=== PATIENT | male | born 1985 | race Caucasian/White ===

== ENCOUNTER 2022-06-29 13:15 | Emergency (ER) | payer MEDICAID ==
[~2022-06-29] VITALS: Ht 180.3 cm; Wt 81.8 kg
[2022-06-29 13:36] VITALS: BP 150/82
[2022-06-29] MEDS ORDERED: LIDOcaine 1% w/EPI 1:100,000 30ml vial (MDV) IJ ONE (15:34)
[2022-06-29] MEDS ORDERED: bacitracin 15gm ointment TP ONE (15:35)
--- NOTE | 2022-06-29 16:33 | NUR ---
rt thumb lac irr with 150ml nacl rt lat knee lac irr with 150ml nacl
[2022-06-29] MEDS ORDERED: SULF1TAB49 PO (17:14)
[2022-06-29] MEDS ORDERED: sulfamethoxazole/trimethoprim DS (800/160mg) tablet PO ONE (17:15)
[2022-06-29] MEDS ORDERED: ondansetron 4mg rapidly disintigrating tab PO ONE (17:15)
== END 2022-06-29 17:43 | disposition home or self-care (01) ==
LOC: ER 13:16
DX: S61.011A Laceration without foreign body of right thumb without damage to nail, initial encounter (principal); S81.011A Laceration without foreign body, right knee, initial encounter; Z79.2 Long term (current) use of antibiotics; X58.XXXA Exposure to other specified factors, initial encounter; Y93.89 Activity, other specified; Y92.89 Other specified places as the place of occurrence of the external cause; Y99.8 Other external cause status
CPT/HCPCS: 12002; 99284; A6449

== ENCOUNTER 2022-07-12 12:03 | Day surgery (SDC) | payer MEDICAID ==
[2022-07-07 13:41] LABS: BASOPHILS # (AUTO) 0.1 X10'3 (0-0.2); BASOPHILS % (AUTO) 1.3 % (0-1); EOSINOPHILS # (AUTO) 0.1 X10'3 (0-0.9); EOSINOPHILS % (AUTO) 1.9 % (0-6); LYMPHOCYTES # (AUTO) 2.5 X10'3 (1.1-4.8); LYMPHOCYTES % (AUTO) 39.4 % (21-51); MEAN CORPUSCULAR HEMOGLOBIN 29.4 PG (27.0-31.0); MEAN CORPUSCULAR HGB CONC 32.9 g/dL (33.0-36.5); MEAN CORPUSCULAR VOLUME 89.4 FL (78-98); MEAN PLATELET VOLUME 8.2 FL (7.4-10.4); MONOCYTES # (AUTO) 0.6 X10'3 (0-0.9); NEUTROPHILS % (AUTO) 48.4 % (42-75); PRE OP HEMATOCRIT 45.6 % (42.0-52.0); PRE OP PLATELET COUNT 162 X10'3 (140-440); RED CELL DISTRIBUTION WIDTH 13.5 % (11.5-14.5)
[2022-07-07 13:52] LABS: ALBUMIN 3.8 G/DL (3.4-5.0); ALBUMIN/GLOBULIN RATIO 1.2 (1.1-1.5); ALKALINE PHOSPHATASE 86 IU/L (46-116); BLOOD UREA NITROGEN 18 MG/DL (7-18); BUN/CREATININE RATIO 18.2 (5.4-32.0); CALCIUM 8.8 MG/DL (8.5-10.1); CHLORIDE 104 MMOL/L (99-107); CREATININE 0.99 MG/DL (0.60-1.10); PRE OP ALT 27 U/L (30-65); PRE OP ANION GAP 4 (8-16); PRE OP AST 16 U/L (10-37); PRE OP BILIRUB, TOTAL 0.3 MG/DL (0.0-1.0); PRE OP GLUCOSE 113 MG/DL (70-104); PRE OP POTASSIUM 4.5 MMOL/L (3.4-5.1); PRE OP SODIUM 139 MMOL/L (135-145); TOTAL CARBON DIOXIDE 31.3 MMOL/L (24-32); TOTAL PROTEIN 6.9 G/DL (6.4-8.2); eGFR 85 ML/MIN
[~2022-07-12] VITALS: Ht 180.3 cm; Wt 82.7 kg
[~2022-07-12 12:03] MED LIST: NO HOME MEDS; ceFAZolin inj. 2,000 MG in dextrose 5%-water 100 ML IV ONE; famotidine 20mg tablet PO ONE; ringers solution, lacted 1,000 ML IV SCH
[2022-07-12 12:15] VITALS: BP 120/70
--- NOTE | 2022-07-12 13:27 | NUR ---
patient prepped for surgery, 2 iv's started without difficulty, one suture remains in right thumb. patients sensation in right thumb is intact, pink warm and dry right hand, pt is unable to bend his thumb backwards, limited mobility.
[2022-07-12] MEDS ORDERED: BUPIVAcaine/PF 2.5mg/ml (0.25%) 10ml vial ONE (13:48)
[2022-07-12] MEDS ORDERED: LIDOcaine 0.5% (5mg/ml) 50ml vial ONE (15:38)
[2022-07-12] MEDS ORDERED: fentaNYL/PF 50MCG/1 ML 2ML syringe ONE (15:50)
[2022-07-12] MEDS ORDERED: MIDAZolam 1 MG/ML 5ML VIAL ONE (16:01)
[2022-07-12] MEDS ORDERED: ondansetron/PF 4mg/2ml inj ONE (16:20)
[2022-07-12] MEDS ORDERED: glycopyrrolate 0.2mg/ml inj ONE (16:20)
[2022-07-12 16:25] VITALS: BP 125/83
--- NOTE | 2022-07-12 16:25 | NUR ---
Received from OR via BED, accompanied by Anesthesiologist and report given by Anesthesiologist. PATIENT WAKING UP, NO S/S OF PAIN, V/S WNL, SCD ON, 20G TO LUE, RIGHT WRIST THUMB DRESSING CDI . ICE AND ELEVATED RUE.
[2022-07-12 16:35] VITALS: BP 119/83
[2022-07-12 16:45] VITALS: BP 121/79
[2022-07-12 16:55] VITALS: BP 114/75
[2022-07-12 17:05] VITALS: BP 123/78
--- NOTE | 2022-07-12 17:05 | NUR ---
PATIENT A&OX4, DENIES PAIN, V/S WNL, SCD OFF, 20G TO LUE D/C, RIGHT WRIST THUMB DRESSING CDI . ICE AND ELEVATED RUE. NEUROVASCULAR CHECKS INTACT. . I HAVE REVIEWED D/C INSTRUCTIONS WITH PATIENT and they have verbalized understanding patient d/c home with all belongings and family gave transport home.
== END 2022-07-12 17:05 | disposition home or self-care (01) ==
LOC: PAS 12:03
PROVIDERS: ATTEND Orthopaedic Surgery Hand Surgery
DX: S66.222A Laceration of extensor muscle, fascia and tendon of left thumb at wrist and hand level, initial encounter (principal); F17.210 Nicotine dependence, cigarettes, uncomplicated; W25.XXXA Contact with sharp glass, initial encounter; Y93.89 Activity, other specified; Y92.89 Other specified places as the place of occurrence of the external cause; Y99.8 Other external cause status; Z79.899 Other long term (current) drug therapy; Z98.890 Other specified postprocedural states
CPT/HCPCS: 26418; 36415; 80053; 82948; 85025; J0690; J2250; J2405; J3010; J3490; J7030; J7060; J7120; Z7506; Z7512; A4215; A4565; A4618; A6449; A7000